=== PATIENT | male | born 1980 | race African-American/Black ===

== ENCOUNTER 2017-08-08 12:14 | Inpatient (IN) | payer OTHER ==
[2017-08-08 13:33] VITALS: BMI 22.1
[2017-08-08] MEDS ORDERED: ACETAMINOPHEN 325 MG TABLET (FP) PO PRN (15:40)
[2017-08-08] MEDS ORDERED: LOPERAMIDE HCL 2 MG CAPSULE PO PRN (15:40)
[2017-08-08] MEDS ORDERED: IBUPROFEN 400 MG TABLET (FP) PO PRN (15:40)
[2017-08-08] MEDS ORDERED: guaiFENesin/D-METHORPHAN HB 10 ML UNIT-DOSE CUPS PO PRN (15:40)
[2017-08-08] MEDS ORDERED: hydrOXYzine PAMOATE 50 MG CAPSULE (FP) PO PRN (15:40)
[2017-08-08] MEDS ORDERED: MENTHOL/PHENOL 1 EACH UD MM PRN (15:40)
[2017-08-08] MEDS ORDERED: NICOTINE POLACRILEX 4 MG GUM BUC PRN (15:40)
[2017-08-08] MEDS ORDERED: MAGNESIUM CITRATE 300 ML BOTTLE PO PRN (15:40)
[2017-08-08] MEDS ORDERED: P-EPHED 60MG/TRIPROLIDI 2.5MG TABLET PO PRN (15:40)
[2017-08-08] MEDS ORDERED: MAG HYDROX/AL HYDROX/SIMETH 30 ML UNIT-DOSE CUP PO PRN (15:40)
[2017-08-08] MEDS ORDERED: MAGNESIUM HYDROX 2400MG/30ML ORAL SUSPENSION 30 ML CUP PO PRN (15:40)
[2017-08-08] MEDS ORDERED: HYDROCHLOROTHIAZIDE 25 MG TABLET (FP) PO SCH (15:45)
[2017-08-08] MEDS ORDERED: NICOTINE 21 MG/24 HOURS TOPICAL PATCH TD SCH (15:45)
[2017-08-08] MEDS ORDERED: amLODIPine BESYLATE 5 MG TABLET (FP) PO SCH (15:45)
[2017-08-08] MEDS ORDERED: RITONAVIR 100 MG TABLET PO SCH (15:45)
--- NOTE | 2017-08-08 15:53 | HP ---
Admission [facility] Chief Complaint: REQUESTING INPATIENT REHAB FROM [facility] Allergies/Adverse Reactions: Allergies Allergy/AdvReac Type Severity Reaction Status Date / Time No Known Allergies Allergy Verified 08/08/17 15:29 History of Present Illness: 36 YO MW TI H/O CRYSTAL METH ADDICTION WAS IN [facility] 1 YEAR AGO. pmhX hiv/ aids, NICOTINE DEPENDENCE 1ppd TAKING ALL MEDICATIONS PRESCRIBED LAST TOOK YESTERDAY. NO SEIZURES, NO dt. NO OTHER ILLICIT DRUG OR ALCOHOL USE Exam Limitations: No Limitations - Ebola screening Have you traveled outside of the country in the last 21 days: No Have you had contact with anyone from an Ebola affected area: No Have you been sick,other than usual withdrawal symptoms: No Do you have a fever: No - Review of Systems Constitutional: No Symptoms Reported EENT: reports: No Symptoms Reported Respiratory: reports: No Symptoms reported Cardiac: reports: No Symptoms Reported GI: reports: No Symptoms Reported : reports: No Symptoms Reported Musculoskeletal: reports: No Symptoms Reported Integumentary: reports: No Symptoms Reported Neuro: reports: No Symptoms reported Endocrine: reports: No Symptoms Reported Hematology: reports: No Symptoms Reported Psychiatric: reports: Judgement Intact, Mood/Affect Appropiate, Orientated x3, Depressed Other Systems: Reviewed and Negative Patient History - Patient Medical History Hx Anemia: No Hx Asthma: No Hx Chronic Obstructive Pulmonary Disease (COPD): No Hx Cancer: No Hx Cardiac Disorders: No Hx Congestive Heart Failure: No Hx Hypertension: No Hx Hypercholesterolemia: No Hx Pacemaker: No HX Cerebrovascular Accident: No Hx Seizures: No Hx Dementia: No Hx Diabetes: No Hx Gastrointestinal Disorders: No Hx Liver Disease: No Hx Genitourinary Disorders: No Hx Sexually Transmitted Disorders: Yes Hx Renal Disease (ESRD): No Hx Thyroid Disease: No Hx Human Immunodeficiency Virus (HIV): Yes Hx Hepatitis C: No Hx Depression: Yes (yes.) Hx Suicide Attempt: No Hx Bipolar Disorder: No Hx Schizophrenia: No - Patient Surgical History Past Surgical History: No Hx Neurologic Surgery: No Hx Cataract Extraction: No Hx Cardiac Surgery: No Hx Lung Surgery: No Hx Breast Surgery: No Hx Breast Biopsy: No Hx Abdominal Surgery: No Hx Appendectomy: No Hx Cholecystectomy: No Hx Genitourinary Surgery: No Hx Orthopedic Surgery: No Hx Hysterectomy: No Other Surgical History: KIDNEY DIALYSIS 2014 Anesthesia Reaction: No - PPD History Date: 07/29/16 PPD to be Administered?: Yes - Reproductive History Patient is a Female of Child Bearing Age (11 -55 yrs old): No Patient : No - Smoking Cessation Smoking history: Current every day smoker Have you smoked in the past 12 months: Yes Aproximately how many cigarettes per day: 2 Hx Chewing Tobacco Use: No Initiated information on smoking cessation: Yes 'Breaking Loose' booklet given: 08/08/17 - Substance & Tx. History Hx Alcohol Use: No Hx Substance Use: Yes (CRYSTAL METH) Hx Substance Use Treatment: Yes ([facility]) - Substances Abused crystal meth Route: Smoking Frequency: 1-2 times per week Amount used: 1 gram Age of first use: 28 Date of Last Use: 08/04/17 Family Disease History - Family Disease History Family Disease History: Heart Disease: Father, Brother, Sister, [place]: Grandparent , Other: Mother (HIV) Admission Physical Exam [facility] - Vital Signs Vital Signs: Vital Signs - 24 hr 08/08/17 13:31 Temperature 97 F L Pulse Rate 76 Respiratory 20 Rate Blood Pressure 147/95 - Physical General Appearance: Yes: Within Normal Limits, No Apparent Distress, Appropriately Dressed, Thin, Anxious HEENTM: Yes: Within Normal Limits, EOMI, Hearing grossly Normal, Normal ENT Inspection, Normal Voice, PETRONA, Pharynx Normal Respiratory: Yes: Within Normal Limits, Chest Non-Tender, Normal Breath Sounds, No Respiratory Distress, No Accessory Muscle Use Neck: Yes: Within Normal Limits, No masses,lesions,Nodules, Supple, Trachea in good position Breast: Yes: Breast Exam Deferred Cardiology: Yes: Within Normal Limits, Regular Rhythm, Regular Rate, S1, S2 Abdominal: Yes: Within Normal Limits, Normal Bowel Sounds, Non Tender, Soft Genitourinary: Yes: Within Normal Limits Back: Yes: Within Normal Limits, Normal Inspection Musculoskeletal: Yes: Within Normal Limits, full range of Motion, Gait Steady, Pelvis Stable Extremities: Yes: Within Normal Limits, Normal Capillary Refill, Normal Inspection, Normal Range of Motion, Non-Tender Neurological: Yes: heel packer II-XII NML intact, Fully Oriented, Alert, Motor Strength 5/5, Normal Response, Depressed Affect Integumentary: Yes: Within Normal Limits, Normal Color, Dry, Warm Lymphatic: Yes: Within Normal Limits - Addiitonal Findings: MEDICALLY STABLE - Diagnostic (1) Methamphetamine addiction Current Visit: No Status: Acute (2) Depression Current Visit: Yes Status: Chronic Qualifiers: (3) HIV (human immunodeficiency virus infection) Current Visit: Yes Status: Chronic (4) Nicotine dependence Current Visit: Yes Status: Chronic Qualifiers: Cleared for Admission S - Detox or Rehab Claeared for Rehab Admission: Yes [facility] Breath Alcohol Content Breath Alcohol Content: 0 Urine Drug Screen - Results Drug Screen Negative: No Urine Drug Screen Results: AMP-Amphetamines, MET-Methamphetamine
[2017-08-08] MEDS ORDERED: TUBERCULIN PPD 5 TU/0.1ML VIAL ID ONE (20:40)
[2017-08-08] MEDS: amLODIPine BESYLATE 5 MG TABLET (FP) PO SCH (21:39)
[2017-08-08] MEDS: HYDROCHLOROTHIAZIDE 25 MG TABLET (FP) PO SCH (21:39)
[2017-08-08] MEDS: DARUNAVIR ETHANOLATE 800 MG TAB PO SCH (21:40)
[2017-08-08] MEDS: NICOTINE 21 MG/24 HOURS TOPICAL PATCH TD SCH (21:40)
[2017-08-08] MEDS: ABACAVIR SULFATE 300 MG TABLET PO SCH (21:41)
[2017-08-08] MEDS: diphenhydrAMINE HCL 50 MG CAPSULE PO PRN (21:42)
[2017-08-08] MEDS: THIAMINE HCL 100 MG TABLET (FP) PO SCH (21:42)
[2017-08-08] MEDS: RITONAVIR 100 MG TABLET PO SCH (21:43)
[2017-08-08 23:17] LABS: URINE APPEARANCE CLEAR; URINE BILIRUBIN NEGATIVE (NEGATIVE); URINE BLOOD NEGATIVE (NEGATIVE); URINE COLOR YELLOW; URINE GLUCOSE (UA) NEGATIVE (NEGATIVE); URINE KETONE NEGATIVE (NEGATIVE); URINE NITRITE NEGATIVE (NEGATIVE); URINE UROBILINOGEN 0.2 mg/dL (0.2-1.0)
[2017-08-08 23:18] LABS: URINE PROTEIN 1+ (NEGATIVE)
[2017-08-08 23:32] LABS: URINE MUCUS RARE; URINE RBC <1 /hpf (0-3); URINE WBC 2 /hpf (3-5)
--- NOTE | 2017-08-09 10:03 | HP ---
Psychiatrist Admission - Data Date of interview: 08/09/17 Admission source: [facility] Identifying data: This is the [address] inpatient rehabilitation admission for this 36 year old single Black male father of 8 year old son, he is unemployed and residing in [facility]. Medical History: Patient reports HIV positive since 2005, history of dialysis in 2014 ''due to drug use'', smokes 2 -3 cigarettes a day. Psychiatric History: Patient reports sees a psychiatrist and therapist at [facility] outpatient clinic to address his depresion and currently on Celaxa 10 mg po daily. Reports no history of psychiatric hospitalizations. Physical/Sexual Abuse/Trauma History: Patient denies history of abuse Vital Signs: Vital Signs - 24 hr 08/08/17 08/08/17 08/09/17 13:31 19:42 00:30 Temperature 97 F L 98.0 F Pulse Rate 76 74 Respiratory 20 18 16 Rate Blood Pressure 147/95 132/90 08/09/17 08/09/17 03:30 07:11 Temperature 97.7 F Pulse Rate 69 Respiratory 16 16 Rate Blood Pressure 143/89 Allergies/Adverse Reactions: Allergies Allergy/AdvReac Type Severity Reaction Status Date / Time No Known Allergies Allergy Verified 08/08/17 15:29 Date of last physical exam: 08/08/17 Concur with the findings of this exam: Yes - Substance Abuse/Tx History Hx Alcohol Use: No Hx Substance Use: Yes (methamphetamine daily use) Hx Substance Use Treatment: Yes - Admission Criteria Previous failed treatment: Yes Poor recovery environment: Yes Comorbidities: Yes Lacks judgement: Yes Mental Status Exam - Mental Status Exam Alert and Oriented to: Place, Person Cognitive Function: Fair Patient Appearance: Well Groomed Mood: Sad Affect: Appropriate, Mood Congruent Patient Behavior: Appropriate, Cooperative Speech Pattern: Appropriate Voice Loudness: Normal Thought Process: Goal Oriented Thought Disorder: Not Present Hallucinations: Denies Suicidal Ideation: Denies Homicidal Ideation: Denies Insight/Judgement: Fair Sleep: Fair Appetite: Fair Muscle strength/Tone: Normal Gait/Station: Normal Psychiatric Findings - Problem List ([place] 1, 2,3) (1) HIV (human immunodeficiency virus infection) Current Visit: Yes Status: Chronic (2) Nicotine dependence Current Visit: Yes Status: Chronic Qualifiers: (3) Methamphetamine addiction Current Visit: No Status: Acute (4) MDD (major depressive disorder) Current Visit: Yes Status: Acute - Initial Treatment Plan Initial Treatment Plan: to continue Celexa 10 mg po daily, monitor progress as needed.
[2017-08-09] MEDS: RITONAVIR 100 MG TABLET PO SCH (10:18)
[2017-08-09] MEDS: ABACAVIR SULFATE 300 MG TABLET PO SCH (10:18)
[2017-08-09] MEDS: DARUNAVIR ETHANOLATE 800 MG TAB PO SCH (10:19)
[2017-08-09] MEDS: PRENATAL VITAMINS W/ FOLIC ACID TABLET (FP) PO SCH ×2 (10:19→10:20)
[2017-08-09] MEDS: HYDROCHLOROTHIAZIDE 25 MG TABLET (FP) PO SCH (10:19)
[2017-08-09] MEDS: amLODIPine BESYLATE 5 MG TABLET (FP) PO SCH (10:19)
[2017-08-09] MEDS: NICOTINE 21 MG/24 HOURS TOPICAL PATCH TD SCH (10:20)
--- NOTE | 2017-08-09 12:54 | EKG ---
Test Reason : Blood Pressure : / mmHG Vent. Rate : 064 BPM Atrial Rate : 064 BPM P-R Int : 172 ms QRS Dur : 098 ms QT Int : 416 ms P-R-T Axes : 046 056 065 degrees QTc Int : 429 ms NORMAL SINUS RHYTHM POOR R WAVE PROGRESSION V1-V3 NONSPECIFIC T WAVE ABNORMALITIES NO PREVIOUS ECGS AVAILABLE REPEAT EKG IF CLINICALLY INDICATED Confirmed by MAYRA GARCIA MD ([id number]) on 08/09/2017 12:54:01 PM Referred By: Confirmed By:MAYRA GARCIA MD
[2017-08-09 15:32] LABS: MCH 21.7 pg (25.7-33.7); MCHC 32.5 g/dl (32.0-35.9); MEAN CELL VOLUME 66.7 fl (80-96); MEAN PLT VOLUME 9.3 fl (7.5-11.1); PLATELET COUNT 203 K/MM3 (134-434); RDW 14.1 % (11.9-15.9); WHITE BLOOD COUNT 3.1 K/mm3 (4.0-10.0)
[2017-08-09 15:33] LABS: ALBUMIN 3.2 g/dl (3.4-5.0)
[2017-08-09 15:36] LABS: ALK PHOS 111 U/L (45-117); ANION GAP 8 (8-16); BILIRUBIN,TOTAL 0.4 mg/dL (0.2-1.0); CO2 25 mmol/L (21-32); CREATININE 1.7 mg/dL (0.7-1.3); GLUCOSE,RANDOM 111 mg/dL (74-106); SGOT/AST 33 U/L (15-37); SGPT/ALT 36 U/L (12-78); TOT PROT 8.2 g/dl (6.4-8.2)
[2017-08-09] MEDS: diphenhydrAMINE HCL 50 MG CAPSULE PO PRN (21:33)
[2017-08-09] MEDS: THIAMINE HCL 100 MG TABLET (FP) PO SCH (21:33)
[2017-08-10] MEDS ORDERED: EMTRICITABINE 200 MG CAPSULE PO SCH (10:00)
[2017-08-10] MEDS ORDERED: ENTECAVIR 0.5 MG TABLET PO SCH (10:00)
[2017-08-10] MEDS: CITALOPRAM HYDROBROMIDE 10 MG TABLET (FP) PO SCH (10:22)
[2017-08-10] MEDS: amLODIPine BESYLATE 5 MG TABLET (FP) PO SCH (10:22)
[2017-08-10] MEDS: DARUNAVIR ETHANOLATE 800 MG TAB PO SCH (10:22)
[2017-08-10] MEDS: ABACAVIR SULFATE 300 MG TABLET PO SCH (10:22)
[2017-08-10] MEDS: HYDROCHLOROTHIAZIDE 25 MG TABLET (FP) PO SCH (10:22)
[2017-08-10] MEDS: RITONAVIR 100 MG TABLET PO SCH (10:23)
[2017-08-10] MEDS: NICOTINE 21 MG/24 HOURS TOPICAL PATCH TD SCH (10:23)
[2017-08-10] MEDS: PRENATAL VITAMINS W/ FOLIC ACID TABLET (FP) PO SCH ×2 (10:24→10:25)
[2017-08-10] MEDS: FERROUS SO4 325 MG TABLET (FP) PO SCH (17:35)
[2017-08-10] MEDS: THIAMINE HCL 100 MG TABLET (FP) PO SCH (21:33)
[2017-08-10] MEDS: diphenhydrAMINE HCL 50 MG CAPSULE PO PRN (21:34)
[2017-08-10] MEDS ORDERED: DOCUSATE SODIUM 100 MG CAPSULE (FP) PO SCH (22:00)
[2017-08-11 07:08] VITALS: BP 125/84; PULSE 76; TEMP 97.7
[2017-08-11] MEDS: FERROUS SO4 325 MG TABLET (FP) PO SCH (07:18)
--- NOTE | 2017-08-11 10:26 | PN ---
Psychiatric Progress Note Vital Signs: Vital Signs Period Temp Pulse Resp BP Sys/Ballesteros Pulse Ox Last 24 Hr 97.7 F 76 16-18 125/84 Date of Session: 08/11/17 Chief Complaint:: "I am leaving this place" Current Medications: Active Medications Generic Name Dose Route Start Last Admin Trade Name Freq PRN Reason Stop Dose Admin Abacavir Sulfate 600 mg 08/08/17 18:15 08/10/17 10:22 Ziagen - PO 600 mg DAILY NENITA Administration Acetaminophen 650 mg 08/08/17 15:40 08/10/17 19:13 Tylenol - PO 650 mg Q4H PRN Administration PAIN Al Hydroxide/Mg Hydroxide 30 ml 08/08/17 15:40 Mylanta Oral Suspension - PO Q6H PRN DYSPEPSIA Amlodipine Besylate 5 mg 08/08/17 18:30 08/10/17 10:22 Norvasc - PO 5 mg DAILY NENITA Administration Citalopram Hydrobromide 10 mg 08/10/17 10:00 08/10/17 10:22 Celexa - PO 10 mg DAILY NENITA Administration Darunavir 800 mg 08/08/17 18:30 08/10/17 10:22 Prezista - PO 800 mg DAILY NENITA Administration Diphenhydramine HCl 50 mg 08/08/17 15:40 08/10/17 21:34 Benadryl - PO 50 mg HSMR1 PRN Administration INSOMNIA Docusate Sodium 300 mg 08/10/17 22:00 08/10/17 21:34 Colace - PO 300 mg HS NENITA Administration Emtricitabine 200 mg 08/10/17 10:00 08/10/17 10:23 Emtriva - PO 200 mg Q72H NENITA Administration Entecavir 1 mg 08/10/17 10:00 08/10/17 10:23 Baraclude - PO 1 mg Q72H NENITA Administration Eucalyptus/Menthol/Phenol/Sorbitol 1 each 08/08/17 15:40 Cepastat Lozenge - MM Q4H PRN SORE THROAT Ferrous Sulfate 325 mg 08/10/17 17:30 08/11/17 07:18 Feosol - PO 325 mg TIDCM NENITA Administration Guaifenesin 10 ml 08/08/17 15:40 Robitussin Dm - PO Q6H PRN COUGH Hydrochlorothiazide 25 mg 08/08/17 18:30 08/10/17 10:22 Hctz - PO 25 mg DAILY NENITA Administration Hydroxyzine Pamoate 50 mg 08/08/17 15:40 Vistaril - PO Q4H PRN AGITATION Ibuprofen 400 mg 08/08/17 15:40 Motrin - PO Q6H PRN SEVERE PAIN Loperamide HCl 4 mg 08/08/17 15:40 Imodium - PO Q6H PRN DIARRHEA Magnesium Citrate 300 ml 08/08/17 15:40 Citroma - PO Q48H PRN CONSTIPATION Magnesium Hydroxide 30 ml 08/08/17 15:40 Milk Of Magnesia - PO DAILY PRN CONSTIPATION Nicotine 21 mg 08/08/17 18:30 08/10/17 10:23 Nicoderm Patch - TD Not Given DAILY NENITA Nicotine Polacrilex 4 mg 08/08/17 15:40 Nicorette Gum - BUC Q2H PRN NICOTINE REPLACEMENT RX Multivit/Folic Acid/Iron 1 tab 08/09/17 10:00 08/10/17 10:24 Vitamins (Sjr) - PO 1 tab DAILY NENITA Administration Multivit/Folic Acid/Iron 1 tab 08/09/17 10:00 08/10/17 10:25 Vitamins (Sjr) - PO Not Given DAILY NENITA Pseudoephedrine/Triprolidine 1 combo 08/08/17 15:40 Actifed - PO TID PRN NASAL CONGESTION Ritonavir 100 mg 08/08/17 18:30 08/10/17 10:23 Norvir - PO 100 mg DAILY NENITA Administration Thiamine HCl 100 mg 08/08/17 22:00 08/10/17 21:33 Vitamin B1 - PO 100 mg HS NENITA Administration Current Side Effect: No Lab tests ordered: No Lab tests reviewed: Yes Provider note:: This is the second ama for this patient, met with the patient to explore reasons for terminating treatment and enouraged to stay and focus on his recovery, patient reports he just wants to leave, he currently on Celexa, scripts provided for 30 days, stable for ama. Total face to face time:: 15 Mental Status Exam - Mental Status Exam Alert and Oriented to: Time, Place, Person Cognitive Function: Good Patient Appearance: Well Groomed Affect: Appropriate, Mood Congruent Patient Behavior: Appropriate, Cooperative Speech Pattern: Appropriate Voice Loudness: Normal Thought Process: Goal Oriented Thought Disorder: Not Present Hallucinations: Denies Suicidal Ideation: Denies Homicidal Ideation: Denies Insight/Judgement: Fair Sleep: Fair Appetite: Fair Muscle strength/Tone: Normal Gait/Station: Normal Psychiatric Treatment Plan - Problem List (1) HIV (human immunodeficiency virus infection) Current Visit: Yes (2) Nicotine dependence Current Visit: Yes Qualifiers: (3) Methamphetamine addiction Current Visit: No (4) MDD (major depressive disorder) Current Visit: Yes
[2017-08-11] MEDS: ABACAVIR SULFATE 300 MG TABLET PO SCH (10:41)
[2017-08-11] MEDS: DARUNAVIR ETHANOLATE 800 MG TAB PO SCH (10:41)
[2017-08-11] MEDS: RITONAVIR 100 MG TABLET PO SCH (10:42)
[2017-08-11] MEDS: CITALOPRAM HYDROBROMIDE 10 MG TABLET (FP) PO SCH (10:42)
[2017-08-11] MEDS: PRENATAL VITAMINS W/ FOLIC ACID TABLET (FP) PO SCH ×2 (10:42→10:44)
[2017-08-11] MEDS: HYDROCHLOROTHIAZIDE 25 MG TABLET (FP) PO SCH (10:42)
[2017-08-11] MEDS: amLODIPine BESYLATE 5 MG TABLET (FP) PO SCH (10:42)
[2017-08-11] MEDS: NICOTINE 21 MG/24 HOURS TOPICAL PATCH TD SCH (10:42)
== END 2017-08-11 11:15 | disposition left against medical advice (07) | DRG 894 ==
LOC: YASAS 12:14 → Y5N 18:01
PROVIDERS: ADMIT Psychiatry & Neurology Psychiatry; ATTEND Psychiatry & Neurology Psychiatry
PROC: HZ42ZZZ Group Counseling for Substance Abuse Treatment, Cognitive-Behavioral (ICD-10-PCS; principal; 2017-08-08)
DX: F19.20 Other psychoactive substance dependence, uncomplicated (principal); F15.20 Other stimulant dependence, uncomplicated; F33.9 Major depressive disorder, recurrent, unspecified; F17.210 Nicotine dependence, cigarettes, uncomplicated; Z21 Asymptomatic human immunodeficiency virus [HIV] infection status
CPT/HCPCS: 36415; 80053; 81003; 81015; 85027; 86593; 93005; 93010